=== PATIENT | male | born 1965 | race Caucasian/White ===

== ENCOUNTER 2019-05-03 15:03 | Inpatient (IN) | payer SELFPAY ==
[~2019-05-03] VITALS: Ht 160 cm; Wt 70.1 kg
[~2019-05-03 15:03] MED LIST: LISINOPRIL10 MG PO
[2019-05-03 15:36] LABS: BASO # 0.1 (0.0-0.2); BASO % 0.6 % (0.0-2.0); EOS # 0.2 (0.0-0.7); EOS % 1.6 % (0-4.0); GRAN # 8.1 (1.4-6.5); GRAN % 66.9 % (42.2-75.2); HEMATOCRIT 48.2 % (42.0-52.0); HEMOGLOBIN 16.8 g/dl (13.5-18.0); LYMPH # 2.9 (1.2-3.4); LYMPH % 23.5 % (20.0-51.0); MEAN CELL VOLUME 85 fl (80.0-100.0); MEAN CORPUSCULAR HEMOGLOBIN 30 pg (27.0-31.0); MEAN CORPUSCULAR HGB CONC 35 g/dl (33.0-37.0); MEAN PLATELET VOLUME 10.7 fl (7.4-10.4); MONO # 0.9 (0.1-0.6); MONO % 7.1 % (1.7-9.3); PLATELET COUNT 284 K/mm3 (130-400); RED BLOOD COUNT 5.65 M/mm3 (4.20-5.60); REDCELL DISTRIBUTION WIDTH-CV 12.1 % (11.5-14.5)
[2019-05-03 15:46] LABS: PROTHROMBIN TIME 11.1 SECONDS (9.7-12.8)
[2019-05-03] MEDS ORDERED: ASPIRIN 81M81 MG/TA2 PO (15:48)
[2019-05-03 15:49] LABS: PARTIAL THROMBOPLASTIN TIME 35.5 SECONDS (26.0-37.0)
[2019-05-03] MEDS ORDERED: PRILOSEC 20MG20 MG PO (15:54)
[2019-05-03] MEDS ORDERED: TENORMIN 2525 MG/TAB PO (15:54)
[2019-05-03] MEDS ORDERED: LIPITOR 40MG TA40 MG PO (15:55)
[2019-05-03] MEDS ORDERED: NORVASC2.5 MG PO (15:55)
[2019-05-03 16:03] LABS: D-DIMER < 200.00 ng/mLDDu (200-230)
[2019-05-03 16:19] LABS: ALANINE AMINOTRANSFERASE 14 U/L (21-72); ALBUMIN 4.3 gm/dL (3.5-5.0); ALKALINE PHOSPHATASE 71 U/L (50-136); ANION GAP 13 mmol/L (7-16); AST,SGOT 20 U/L (15-37); BILIRUBIN,TOTAL 0.6 mg/dL (0.0-1.0); BLOOD UREA NITROGEN 12 mg/dL (9-20); CALCIUM 9.2 mg/dL (8.4-10.2); CARBON DIOXIDE 23 mmol/L (22-30); CHLORIDE 104 mmol/L (98-107); CREATININE, serum 0.85 (0.66-1.25); GLUCOSE 107 mg/dL (74-106); LIPASE 361 U/L (23-300); SODIUM 140 mmol/L (137-145); TOTAL PROTEIN 7.7 gm/dL (6.4-8.2)
[2019-05-03 16:48] LABS: TROPONIN-I < 0.012 ng/mL (0.000-0.035)
--- NOTE | 2019-05-03 18:20 | NUR ---
resting in bed lab in to draw blood, patient donita he arrived on the unit about 10 minues ago
--- NOTE | 2019-05-03 18:47 | NUR ---
bedside shift report given to KACY Verduzco
[2019-05-03 18:55] VITALS: BP 134/82; PULSE 64; TEMP 98.1
[2019-05-03 18:58] VITALS: BP 134/82; PULSE 64; TEMP 98.1
--- NOTE | 2019-05-03 23:27 | NUR ---
HEPARIN DRIP INFUSING ACCORDING TO ORDER. SEE EMAR FOR TIME INITIATED WITH BOLUS GIVEN. PATIENT DENIES C/O CHEST PAIN OR DOSCOMFORT THIS SHIFT SO FAR. NO SOA OR NAUSEA. SEE CHART FOR RESULTED SERIAL TROPONINS WNL. TELEMETRY CONTINUES WITH NSR. WILL RE CHECK HEPARIN XA @ 0200 ON 05/04. PATIENT HAS NO CONCERNS AT THIS TIME.
[2019-05-03 23:49] VITALS: BP 101/57; PULSE 66; TEMP 98.1
[2019-05-04] VITALS (11 sets, daily range): BP systolic 92–115; BP diastolic 53–70; PULSE 58–65; TEMP 97.6–97.8
--- NOTE | 2019-05-04 04:07 | NUR ---
CALL FROM LAB WITH HEPARIN XA RESULTS @ 0329 WITH RESULT BEING 0.87. PER PROTOCAL HEPARIN DRIP STOPPED FOR 60 MINUETS WILL RESTART @ 0440 @ 6.5ML/HR WITH HEPARIN XA RECHECK 6 HOURS FROM RESTART AT 1040. PATIENT INFORMED OF LAB RESULTS AND PLAN OF CARE. NO CONCERNS VOICED. AGREES WITH PLAN OF CARE.
--- NOTE | 2019-05-04 08:26 | NUR ---
Assessment completed, alert/oriented, vital signs are stable/ slightly hypotensive with Nitro paste, he denies any chest pain or discomfort currently, heart RRR/distal pulses are palpable, no edema noted, lungS CTA/ no resp.difficulty noted, heparin gtt infusing/ next HepXa level at 0945, serial Troponin negative, no EKG/TEle changes through the night, Cardiology has been consulted, he is NPO for likely heart cath procedure, he is up in his room independnelty, denies other needs at this time
--- NOTE | 2019-05-04 11:07 | NUR ---
SEE MERGE REPORT FOR MEDICATION ADMINISTRATION TIMES WELL INTRA/POST SEDATION ASSESSMENTS.
--- NOTE | 2019-05-04 11:44 | NUR ---
First visit from the senior software test engineer. No needs right now.
--- NOTE | 2019-05-04 12:09 | NUR ---
patient arrived back to the medical floor from lab director at this time, he is alert/oriented, vital signs stable, denies pain, right radial artery used for access and TR band in place and inflated withh 11cc air/ no ooozing or bleeding noted / will deflate per protocol starting at 1400, he is tolerating PO intake well, family is present in the room, will continue to monitor
--- NOTE | 2019-05-04 14:04 | NUR ---
patient continues to do well post heart cath, vital signs stable, denies pain, tolerating PO intake well, he has been up to bathroom and voided urine, we have deflated his TR band by 4ml at this time and will mnitor for bleedin, denies needs
[2019-05-04] MEDS ORDERED: LIPITOR 80MG80 MG PO (14:40)
[2019-05-04] MEDS ORDERED: PLAVIX 75MG TAB75 MG PO (14:40)
[2019-05-04] MEDS ORDERED: NITROSTAT0.4 MG/TAB SL (14:42)
--- NOTE | 2019-05-04 15:00 | NUR ---
Discussed discharge orders with the patient, instructed to follow up with PCP and Cardiology as we have scheduled for him, removed last of the air in his TR band and monitored for about 30 more minutes without any signs of oozing or bleeding, instructed him to not do any heavy labor activities with that right upper extrm. / if bleeidng occured instructed him to hold firm pressure to site, discussed all new meds and med changes, scripts sent to [facility] pharmacy for him, family present at time of discharge, IV site removed from left wrist, I personally escorted him out the room
[2019-05-04] MEDS ORDERED: OMEGA-3 1000 MG1 CAP PO (15:07)
--- NOTE | 2019-05-04 15:22 | NUR ---
JULIETTE met with the patient to discuss discharge plan. The patient lives in [place] with his sister, Batool. He states he recently moved back here from [place]. He reports independence with ADLs and does not have any DME. The patient's PCP is Dr. Owen Asher and he receives his medications at the [facility] in [facility], but plans to switch to the [facility] in [place]. He reports no difficulties obtaining his meds. The patient is self pay. Financial counselor, Marbin, was consulted and met with the patient. The patient plans to return home with his sister upon discharge. No additional needs at this time.
== END 2019-05-04 17:23 | disposition home or self-care (01) | DRG 287 ==
LOC: COL.ER 15:03 → MEDICAL 16:53
PROVIDERS: Emergency Medicine; ADMIT Internal Medicine
PROC: 4A023N7 Measurement of Cardiac Sampling and Pressure, Left Heart, Percutaneous Approach (ICD-10-PCS; principal; 2019-05-04)
PROC: B2111ZZ Fluoroscopy of Multiple Coronary Arteries using Low Osmolar Contrast (ICD-10-PCS; 2019-05-04)
DX: R07.89 Other chest pain (principal); E78.5 Hyperlipidemia, unspecified; I10 Essential (primary) hypertension; F17.210 Nicotine dependence, cigarettes, uncomplicated; I25.10 Atherosclerotic heart disease of native coronary artery without angina pectoris; K21.9 Gastro-esophageal reflux disease without esophagitis; I25.2 Old myocardial infarction; Z95.5 Presence of coronary angioplasty implant and graft; Z79.82 Long term (current) use of aspirin; Z88.0 Allergy status to penicillin
CPT/HCPCS: 99222-AI; C1769; J1200; J1644; J2250; J3010; J7030; Q9967

== ENCOUNTER 2020-01-18 14:52 | Emergency (ER) | payer BC ==
[~2020-01-18] VITALS: Ht 160 cm; Wt 65.5 kg
[~2020-01-18 14:52] MED LIST changes: +ASPIRIN 81M81 MG/TA2 PO; +LIPITOR 40MG TA40 MG PO; +LIPITOR 80MG80 MG PO; +NITROSTAT0.4 MG/TAB SL; +NORVASC2.5 MG PO; +OMEGA-3 1000 MG1 CAP PO; +PLAVIX 75MG TAB75 MG PO; +PRILOSEC 20MG20 MG PO; +TENORMIN 5050 MG/TAB PO
[2020-01-18 15:06] VITALS: TEMP 97.6
[2020-01-18] MEDS ORDERED: RANEXA 500MG T500 MG PO (15:36)
[2020-01-18 15:49] LABS: BASO # 0.1 (0.0-0.2); BASO % 0.5 % (0.0-2.0); EOS # 0.5 (0.0-0.7); EOS % 4.6 % (0-4.0); GRAN # 8.3 (1.4-6.5); HEMATOCRIT 46.7 % (42.0-52.0); HEMOGLOBIN 15.7 g/dl (13.5-18.0); LYMPH # 1.7 (1.2-3.4); MEAN CELL VOLUME 88 fl (80.0-100.0); MEAN CORPUSCULAR HEMOGLOBIN 30 pg (27.0-31.0); MEAN CORPUSCULAR HGB CONC 34 g/dl (33.0-37.0); MEAN PLATELET VOLUME 10.3 fl (7.4-10.4); MONO # 0.6 (0.1-0.6); MONO % 5.5 % (1.7-9.3); PLATELET COUNT 280 K/mm3 (130-400); RED BLOOD COUNT 5.28 M/mm3 (4.20-5.60); REDCELL DISTRIBUTION WIDTH-CV 12.2 % (11.5-14.5)
[2020-01-18] MEDS ORDERED: PLAVIX 75MG TAB75 MG PO (15:58)
[2020-01-18 16:01] LABS: ALANINE AMINOTRANSFERASE 16 U/L (4-49); ALBUMIN 4.5 gm/dL (3.5-5.0); ALKALINE PHOSPHATASE 84 U/L (50-136); ANION GAP 10 mmol/L (7-16); AST,SGOT 25 U/L (15-37); BILIRUBIN,TOTAL 0.7 mg/dL (0.0-1.0); BLOOD UREA NITROGEN 14 mg/dL (9-20); CALCIUM 9.1 mg/dL (8.4-10.2); CARBON DIOXIDE 27 mmol/L (22-30); CHLORIDE 102 mmol/L (98-107); CREATININE, serum 1.07 (0.66-1.25); GLUCOSE 133 mg/dL (74-106); LIPASE 67 U/L (23-300); SODIUM 139 mmol/L (137-145); TOTAL PROTEIN 7.5 gm/dL (6.4-8.2)
[2020-01-18 16:09] LABS: PROTHROMBIN TIME 11.6 SECONDS (9.7-12.8)
[2020-01-18 16:14] LABS: TROPONIN-I < 0.012 ng/mL (0.000-0.035)
[2020-01-18 20:09] VITALS: BP 123/79; PULSE 63
== END 2020-01-18 20:05 | disposition home or self-care (01) ==
LOC: COL.ER 14:52
PROVIDERS: Emergency Medicine
DX: R55 Syncope and collapse (principal); I25.10 Atherosclerotic heart disease of native coronary artery without angina pectoris; I10 Essential (primary) hypertension; E78.5 Hyperlipidemia, unspecified; Z79.82 Long term (current) use of aspirin; Z79.02 Long term (current) use of antithrombotics/antiplatelets; Z95.5 Presence of coronary angioplasty implant and graft
CPT/HCPCS: J7030

== ENCOUNTER 2020-01-20 07:04 | Day surgery (SDC) | payer BC ==
[~2020-01-20] VITALS: Ht 160 cm; Wt 66.4 kg
[2020-01-20] VITALS (16 sets, daily range): BP systolic 105–157; BP diastolic 68–85; PULSE 56–89; TEMP 98
[~2020-01-20 07:04] MED LIST changes: +RANEXA 500MG T500 MG PO
[2020-01-20 08:26] LABS: HEMATOCRIT 42.7 % (42.0-52.0); HEMOGLOBIN 14.5 g/dl (13.5-18.0); MEAN CELL VOLUME 87 fl (80.0-100.0); MEAN CORPUSCULAR HEMOGLOBIN 30 pg (27.0-31.0); MEAN CORPUSCULAR HGB CONC 34 g/dl (33.0-37.0); PLATELET COUNT 250 K/mm3 (130-400); RED BLOOD COUNT 4.91 M/mm3 (4.20-5.60); REDCELL DISTRIBUTION WIDTH-CV 12.2 % (11.5-14.5)
[2020-01-20 08:38] LABS: CREATININE, serum 0.95 (0.66-1.25); POTASSIUM 4.2 mmol/L (3.4-5.0)
[2020-01-20 08:44] LABS: INR 1.1 (0.8-3.0); PROTHROMBIN TIME 12.3 SECONDS (9.7-12.8)
[2020-01-20 08:47] LABS: PARTIAL THROMBOPLASTIN TIME 35.2 SECONDS (26.0-37.0)
[2020-01-20] MEDS ORDERED: LIPITOR 40MG TA40 MG PO (08:47)
[2020-01-20] MEDS ORDERED: MULTI VITAMINS1 TAB PO (08:50)
[2020-01-20] MEDS ORDERED: OMEGA-3 1000 MG1 CAP PO (08:53)
[2020-01-20] MEDS ORDERED: NITROSTAT0.4 MG/TAB SL (08:54)
--- NOTE | 2020-01-20 09:10 | NUR ---
Pt to procedure.
[2020-01-20] MEDS ORDERED: TENORMIN 2525 MG/TAB PO (09:59)
[2020-01-20] MEDS ORDERED: NORVASC2.5 MG PO (09:59)
[2020-01-20] MEDS ORDERED: PEPCID 20MG TAB20 MG PO (10:07)
--- NOTE | 2020-01-20 10:17 | NUR ---
Pt returned from procedure,report from Randee Cornell.
--- NOTE | 2020-01-20 13:05 | NUR ---
2 ML AIR REMOVED FROM BAND,BLEEDIN GOBSERVED AFTER A FEW MINUTES.2ML OF AIR REINSTILLED INTO BAND.
--- NOTE | 2020-01-20 16:10 | NUR ---
Discharge instructions given to pt.Pt verbalizes understanding.INT removed,catheter tip intact.Pt escorted out via wheelchair by this nurse.
== END 2020-01-20 16:21 | disposition home or self-care (01) ==
LOC: COL.CAR 07:04
PROVIDERS: Internal Medicine Cardiovascular Disease
DX: I25.110 Atherosclerotic heart disease of native coronary artery with unstable angina pectoris (principal); I95.9 Hypotension, unspecified; I10 Essential (primary) hypertension; E78.49 Other hyperlipidemia; K21.9 Gastro-esophageal reflux disease without esophagitis; Z79.82 Long term (current) use of aspirin; Z88.8 Allergy status to other drugs, medicaments and biological substances; Z88.0 Allergy status to penicillin
CPT/HCPCS: J1644; J2250; J3010; Q9967

== ENCOUNTER 2021-11-04 11:00 | Emergency (ER) | payer OTHER ==
[~2021-11-04] VITALS: Ht 160 cm; Wt 59.1 kg
[~2021-11-04 11:00] MED LIST changes: +MULTI VITAMINS1 TAB PO; +PEPCID 20MG TAB20 MG PO; +TENORMIN 2525 MG/TAB PO
[2021-11-04 11:28] VITALS: BP 135/99; PULSE 73; TEMP 97.8
== END 2021-11-04 12:31 | disposition home or self-care (01) ==
LOC: COL.ER 11:00
DX: U07.1 COVID-19 (principal); E78.5 Hyperlipidemia, unspecified; I10 Essential (primary) hypertension; Z88.0 Allergy status to penicillin; Z79.899 Other long term (current) drug therapy